=== PATIENT | female | born 1985 | race Caucasian/White ===

== ENCOUNTER 2019-05-10 19:06 | Observation (INO) ==
--- NOTE | 2019-05-10 12:51 | OB/GYN History & Physical ---
Date of Encounter: 05/10/19 Time of Encounter: 12:50 Assessment and Plan (1) Menorrhagia with irregular cycle Status: Acute Patient is scheduled for robotic total laparoscopic hysterectomy bilateral salpingectomy (2) Dysmenorrhea Status: Acute (3) Blood loss anemia Status: Acute Patient will be admitted and 2 units of packed red blood cells will be transfused overnight for surgery in a.m. (4) Enlarged uterus Status: Acute History of Present Illness HPI: Ms. Fitch is a 33 year old female who presented for transfusion secondary to blood loss anemia and surgery scheduled in the am, patient is scheduled for robotic total laparoscopic hysterectomy tomorrow morning however her preoperative lab work showed hemoglobin of 7.7. This was discussed with anesthesia who felt the patient need to be transfused prior to surgery. Patient has been having issues with heavy irregular painful. For some time that we have been unable to treat medically. She is had surgery and medical management nothing seems to be controlling her bleeding she currently is on norethindrone which has slowed down the bleeding but not 100% stopped it. It was recommended she undergo a robotic hysterectomy due to history of previous sections. Past Med Surg Social Fam HX - Past Medical History Source: patient, old records reviewed Medical history: thyroid disease, other Additional medical history: Bleeding with IUD; Removed. Anemia. Enlarged Uterus. Menorrhagia. Endometrial Hyperplasia Psychiatric history: no psych history - Past Surgical History Surgical History: , other Additional surgical history: ORIF LT WRIST. d&c. tonsils. wisdom teeth - Social History Smoking Status: Never smoker Smokeless Tobacco Status: No Alcohol use: none Drug use: none Occupational status: employed Current living situation: Home - Independent Recent Out of Country Travel Within the Last 8 Weeks: No Exposure or Possible Exposure to Illness During Travel: No - Additional Family History Additional family history: Family history noncontributory at this time Obstetrical History - Pregnancies : 3 Para: 3 Livin Medications and Allergies Thyroid,Pork [Nature-Throid] 32.5 mg PO DAILY 10/17/18 [History] Ferrous Sulfate [Iron] 325 mg PO BID 03/05/19 [History] Megestrol Acetate 20 mg PO BID 03/05/19 [History] Allergy/AdvReac Type Severity Reaction Status Date / Time ibuprofen Allergy Hives Verified 05/04/19 10:48 Review of System OB All systems PM: reviewed and no additional remarkable complaints except as stated - Menstruation Menstruation: other (heavy flow ) Exam - Constitutional Constitutional: well developed, well nourished, no acute distress, average body habitus - HEENT HEENT: Normocephaly, Mucus Membranes Moist - Neck Neck exam: full ROM - Lungs Respiratory exam: CTAB - Cardiovascular Cardiovascular exam: RRR - Abdomen Abdomen: Present: bowel sounds normal - Vagina Vagina: Present: normal moisture - Uterus Uterus exam: Present: enlarged Results All other labs normal. - VTE Reasons for not Prescribing Prophylaxis: Treatment not Indicated - Low risk for VTE
[2019-05-10] MEDS ORDERED: 0.9 % Sodium Chloride 500 ML ONE (20:52)
[2019-05-11 06:45] LABS: Hemoglobin 8.7 g/dL (11.5-15.4); Mean Corpuscular HGB Conc 28.2 g/dL (31.6-35.5)
[2019-05-11 06:46] LABS: Hematocrit 30.9 % (35.3-44.9); Mean Corpuscular Hemoglobin 20.4 pg (28.0-33.3); Mean Corpuscular Volume 72.5 fL (83.0-100.0); Mean Platelet Volume 10.5 fL (9.4-12.4); Platelet Count 284 K/mcL (140-400); Red Blood Count 4.26 M/mcL (3.82-4.97); Red Cell Distribution Width 19.9 % (11.5-14.5); White Blood Count 7.6 K/mcL (4.3-11.1)
[2019-05-11] MEDS ORDERED: *HR* FentaNYL (PF) 100 MCG/2 ML VIAL ONE (06:54)
[2019-05-11] MEDS ORDERED: *HR* Midazolam HCl 2 MG/2 ML VIAL ONE (06:54)
[2019-05-11] MEDS ORDERED: *HR* Propofol 200 MG/20 ML VIAL IVP ONE (06:54)
[2019-05-11] MEDS ORDERED: Lidocaine -MPF 2% 2 ML VIAL ONE (06:55)
[2019-05-11] MEDS ORDERED: *HR* Rocuronium Bromide 50 MG/5 ML VIAL ONE ×2 (06:55→09:09)
[2019-05-11] MEDS ORDERED: Dexamethasone 4 MG/ML VIAL ONE (06:55)
[2019-05-11] MEDS ORDERED: Ondansetron 4 MG/2 ML VIAL ONE (06:55)
[2019-05-11] MEDS ORDERED: CeFAZolin Syr 2,000MG/20 ML 2,000 MG/20 ML SYRINGE IVPB ONE (07:13)
[2019-05-11] MEDS ORDERED: MetroNIDAZOLE 500 MG/100 ML 500 MG/100 ML BAG IVPB ONE (07:13)
--- NOTE | 2019-05-11 07:17 | OB/GYN Progress Note ---
Date of Encounter: 05/11/19 Time of Encounter: 07:15 - Assessment and Plan (1) Menorrhagia with irregular cycle Current Visit: No Status: Acute Patient is scheduled for robotic total laparoscopic hysterectomy bilateral salpingectomy (2) Dysmenorrhea Current Visit: No Status: Acute (3) Blood loss anemia Current Visit: No Status: Acute will discuss with patient and anesthesia about an additional 2 units, will proceed on with surgery (4) Enlarged uterus Current Visit: No Status: Acute Subjective - Subjective Interval history: patient states she is not bleeding but after 2 units hemoglobin only went up from 7.7 to 8.7. will discuss with anesthesia and patient about giving her an additional 2 units intraop. will proceed on with surgery Objective - Vital Signs Latest vital signs: Vital Signs Temp Pulse Resp BP Pulse Ox 05/11/19 02:28 98.3 F 73 18 100/54 98 05/11/19 00:10 98.4 F 81 18 124/69 99 05/11/19 00:06 98.6 F 90 18 123/65 98 05/10/19 23:40 98.5 F 84 18 99 05/10/19 21:45 98.4 F 85 18 119/70 99 05/10/19 21:29 98.9 F 91 18 123/71 05/10/19 21:15 98.4 F 94 18 124/70 99 05/10/19 18:54 98.2 F 92 16 117/73 100 Intake and Output 05/10/19 05/10/19 05/11/19 15:59 23:59 07:59 Intake Total 470 / 470 350 / 350 Balance 470 / 470 350 / 350 Intake: Oral 120 / 120 Blood Product 350 / 350 350 / 350 Rbcs Leuko Poor As-1 Unit 350 / 350 [id number] Rbcs Leuko Poor As-1 Unit 350 / 350 [id number] Other: # Voids 1 1 Weight 102.5 kg - I&O's I&O's: Intake & Output 05/08/19 05/09/19 05/10/19 05/11/19 23:59 23:59 23:59 23:59 Intake Total 470 / 470 350 / 350 Balance 470 / 470 350 / 350 Weight 102.5 kg - Exam Chest: Normal S1, Normal S2 Extremities: Present: normal - Labs Labs: Abnormal lab results Hgb 8.7 g/dL (11.5-15.4) L 05/11/19 06:34 Hct 30.9 % (35.3-44.9) L 05/11/19 06:34 MCV 72.5 fL (83.0-100.0) L 05/11/19 06:34 MCH 20.4 pg (28.0-33.3) L 05/11/19 06:34 MCHC 28.2 g/dL (31.6-35.5) L 05/11/19 06:34 RDW 19.9 % (11.5-14.5) H 05/11/19 06:34 Crossmatch See Detail 05/10/19 19:50 Consult Discharge Plan - Plan Referrals: Cheryl Springer MD [Primary Care Provider] -
[2019-05-11] MEDS ORDERED: Dexmedetomidine HCl 0 MCG/0 ML MLS IVC ONE (07:20)
[2019-05-11] MEDS ORDERED: *HR* Belladonna Alkaloids/Opium 30 MG RECTAL SUPPOSITORY RC ONE ×2 (07:28→10:09)
[2019-05-11] MEDS ORDERED: Bupivacaine/EPI 1:200k 0.25%PF 30 ML VIAL ONE (07:28)
--- NOTE | 2019-05-11 07:35 | Anesthesia Evaluation PreOp ---
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: Denies Any Significant HX Other Medical History: Other (Obesity) Anesthesia History: No Prior Anesthetic Complications, Past Anesthesia (WEriost, Tonsils, Spinal Cyst) : No Test: Negative (05/04/19) Alcohol Use: none Drug use: none Medications and Allergies Thyroid,Pork [Nature-Throid] 32.5 mg PO DAILY 10/17/18 [History] Ferrous Sulfate [Iron] 325 mg PO BID 03/05/19 [History] Megestrol Acetate 20 mg PO BID 03/05/19 [History] Allergy/AdvReac Type Severity Reaction Status Date / Time ibuprofen Allergy Hives Verified 05/04/19 10:48 - Meds/Allergy Pre-op Review Medications Reviewed: Yes Allergies Reviewed: Yes Beta Blockers on Current Med List: No Anesthesia Results - Labs 05/11/19 06:34 Anesthesia Exam O2 Sat Height 1.65 m Weight 102.5 kg O2 Sat by Pulse Oximetry 98 O2 Sat by Pulse Oximetry 99 O2 Sat by Pulse Oximetry 98 O2 Sat by Pulse Oximetry 99 O2 Sat by Pulse Oximetry 99 O2 Sat by Pulse Oximetry 99 O2 Sat by Pulse Oximetry 100 Vital Signs Temp Pulse Resp BP Pulse Ox 98.2 F 92 16 117/73 100 05/10/19 18:54 05/10/19 18:54 05/10/19 18:54 05/10/19 18:54 05/10/19 18:54 NPO (# of Hours): > 8 hrs Pain Scale: 0 Pain Scale Used: Numeric (1 - 10) - HEENT Pupil (Motor): Pupils equal, EOMI Mallampati: II Teeth: Normal Oral Opening: Greater than 3 - BUSINESS OFFICE TECHNICIAN LOC: Oriented BUSINESS OFFICE TECHNICIAN Motor: Normal RUE, Normal LUE, Normal RLE, Normal LLE, Normal Face BUSINESS OFFICE TECHNICIAN Sensory: Normal: RUE, LUE, RLE, LLE, Face - Cardiac Rhythm: Regular Murmur: None JVD: No Carotid Bruit: No - Pulmonary Breath Sounds: bilateral Clear Respiratory Effort: Symmetrical Anesthesia Assess/Plan ASA Score: 2 Level of consciousness: Cooperative Anesthetic Plan: General Autologous Blood: Yes Recovery Plan: PACU
[2019-05-11] MEDS ORDERED: *HR* Promethazine 25 MG/ML VIAL IVP PRN (09:31)
[2019-05-11] MEDS ORDERED: *HR* HYDROmorphone (PF) 1 MG/ML SYRINGE IVP PRN (09:31)
[2019-05-11] MEDS ORDERED: Ondansetron 4 MG/2 ML VIAL IVP ONE (09:31)
[2019-05-11] MEDS ORDERED: *HR* OxyCODONE Immed Rel 5 MG TABLET PO PRN (09:31)
[2019-05-11] MEDS ORDERED: *HR* HYDROMORPHONE 2 MG/ML VIAL ONE (09:51)
--- NOTE | 2019-05-11 10:13 | OB/GYN Procedure Note ---
Hysterectomy - Diagnosis Date of procedure: 05/11/19 Hysterectomy pre-op: other (Menorrhagia with irregular bleeding, dysmenorrhea, enlarged uterus, endometrial hyperplasia simple cystic without atypia, blood loss anemia) Post-op diagnosis: same (With status post transfusion 3 units, endometriosis) - Procedure Hysterectomy procedure: total laparoscopic hyst., bilateral salpingectomy, robotic Surgeon: Christopher De Los Santos Was there an physician assistant primary care present: Yes Floral Assistant: Ginny Quispe Anesthesia provider: Harish Hartley Anesthesia Type: General Estimated blood loss (cc): 70 Complications: none Fluids: crystalloid, blood (one unit) Specimens: uterus, cervix, right fallopian tube, left fallopian tube Findings: Enlarged bulky uterus stage II endometriosis left ovarian cyst Disposition: PACU Narrative: Patient is a 33-year-old female 3 para 3 who had presented for robotic hysterectomy secondary to menorrhagia with irregular bleeding. Patient has been having heavy periods for over a year she did undergo a operative hysteroscopy D&C with a simple cystic hyperplasia was identified without atypia. 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 Patient had had previous sections was recommended she have a robotic hysterectomy and was referred to myself. Patient has been placed on [facility] which had finally got a bleeding under control however at the time of her preoperative blood work showed hemoglobin is 7.7. We did bring the patient in the night before for transfusion of 2 units. Patient's hemoglobin this morning was only 8.7 was recommended she get an additional 1-2 units intraoperatively. Because of her young age she was recommended the ovaries be left in place just removing the uterus cervix both tubes. Procedure: Patient was taken to the operating room where general anesthesia was found be adequate. She was placed in the dorsal lithotomy position prepped and draped in usual fashion. Timeout was obtained. A weighted speculum was placed in the vagina cervix was visualized sounded to 11 cm. Using a 3-1/2 cm cup 10 cm tip on the Cyntiha this was then inserted and secured in place. Instruments were removed catheter was placed and attention was then turned to the abdomen. Approximately 3 cm superior to the umbilicus a 12 mm incision was made 12 mm trocar was inserted under direct visualization. Pneumoperitoneum was obtained with 4 L of CO2 gas. Approximately 11 cm laterally on the right and left side 2 cm distal to 8 mm incisions were made at the 2 8 mm trochars were inserted under direct visualization. Approximately 12 cm lateral and distal on the right side a 12 mm trocar was then inserted. Pelvis was visualized patient was noted to have multiple endometrial implants across the bladder reflection the uterus and posterior cul-de-sac she did have a cyst on the left ovary simple which we did drain at this time. We had not discussed taking ovaries up from endometriosis and she really is not complaining of pain so we are going to leave them in place. The da Linda was then brought into place and secured instruments were then placed and attention presented to the console. The round ligaments were then identified and cauterized and transected the anterior leaf the broad ligament was then opened up dissecting the bladder off the lower uterine segment. The fallopian tubes were taken off the ovary to the mesosalpinx this was then taken all way to the cornual region then the ovary was from the uterus to the utero-ovarian ligament. Broad ligaments were then skeletonized uterine vessels were identified cauterized and transected we carried the incision down bilaterally until we were at the level of the uterosacral cardinal complex with good blanching to the uterus. The Cynthia was identified anteriorly after the bladder had been make sure it was completely dissected down we then inserted identifying the Cynthia cup the vagina was then occluded we then followed the Cynthia around anteriorly and posteriorly until the specimen was freed. Once the specimen was freed was removed out through the vagina. Good hemostasis was noted the vaginal cuff was then closed using a 2-0 V lock Suture in a running stitch from both corners to midline. Still had good hemostasis pelvis was copiously irrigated and Shon was applied to the lower surfaces. Both ovaries were normal and the procedure was terminated and the pneumoperitoneum was released and instruments removed from the abdomen followed by removal of the trochars. The skin incisions were closed using a 4-0 Vicryl in a subcuticular manner followed by Dermabond. The venous posterior was placed rectally and the patient was taken to the recovery room in stable condition. All needles lap sponge counts were correct 3 she did receive preoperative antibiotic. Patient did receive 1 unit of blood intraoperatively she was very stable second unit will be held we will repeat a CBC in 4 hours to see patient stable
--- NOTE | 2019-05-11 10:43 | Anesthesia Evaluation Post Op ---
Date of Encounter: 05/11/19 Time of Encounter: 10:42 - Vital Signs Vital Signs: Vital Signs/O2 Sat, Most Current Temp Pulse Resp BP Pulse Ox 97.8 F 72 16 114/68 97 05/11/19 10:41 05/11/19 10:41 05/11/19 10:41 05/11/19 10:41 05/11/19 10:41 - Lungs Lungs: Clear Ascult./Percussion - Airway Airway: Non-obstructed - Cardiovascular Regular Rate - Mental Status Mental Status: Asleep with brisk response to light stimulation - Pain Pain Scale: 0 Pain Scale used: Numeric (1 - 10) - Nausea Vomiting Nausea Vomiting: Not Present - Hydration Hydration: Ice chips, Martinez catheter - Discharge PostOp Status: Transfer Patient to floor
[2019-05-11] MEDS ORDERED: *HR* OxyCODONE/APAP 10/325 TABLET PO PRN (11:00)
[2019-05-11] MEDS ORDERED: Ondansetron 4 MG/2 ML VIAL IVP PRN (11:00)
[2019-05-11] MEDS ORDERED: Ringers Solution, Lactated 1,000 ML IVC SCH (11:00)
[2019-05-11] MEDS ORDERED: Naloxone 0.4 MG/ML INJ IVP PRN (11:00)
[2019-05-11] MEDS: *HR* OxyCODONE/APAP 5/325 TABLET PO PRN ×2 (12:27→19:57)
--- NOTE | 2019-05-11 13:17 | Discharge Summary ---
Date of Encounter: 05/12/19 Time of Encounter: 07:06 - Discharge Diagnosis (1) Menorrhagia with irregular cycle Priority: Secondary Status: Acute (2) Dysmenorrhea Priority: Secondary Status: Acute (3) Blood loss anemia Priority: Primary Status: Acute (4) Enlarged uterus Priority: Secondary Status: Acute (5) History of robot-assisted laparoscopic hysterectomy Priority: Primary Status: Acute - Discharge Medications Prescriptions: New OxyCODONE/APAP 5/325 [Percocet 5/325 MG] 1 each PO Q4HR PRN 7 Days #28 tablet PRN Reason: Mild To Moderate Pain Continued Ferrous Sulfate [Iron] 325 mg PO BID Megestrol Acetate 20 mg PO BID Thyroid,Pork [Nature-Throid] 32.5 mg PO DAILY Home Medications: Thyroid,Pork [Nature-Throid] 32.5 mg PO DAILY 10/17/18 [History] Ferrous Sulfate [Iron] 325 mg PO BID 03/05/19 [History] Megestrol Acetate 20 mg PO BID 03/05/19 [History] OxyCODONE/APAP 5/325 [Percocet 5/325 MG] 1 each PO Q4HR PRN 7 Days #28 tablet 05/12/19 [Rx] Allergies/Adverse Reactions: Allergy/AdvReac Type Severity Reaction Status Date / Time ibuprofen Allergy Hives Verified 05/04/19 10:48 Data Procedures and tests throughout hospitalization: Laboratory Tests 05/10/19 05/11/19 19:50 06:34 WBC 7.6 RBC 4.26 Hgb 8.7 L Hct 30.9 L MCV 72.5 L MCH 20.4 L MCHC 28.2 L RDW 19.9 H Plt Count 284 MPV 10.5 Blood Type A POSITIVE Antibody Screen NEGATIVE Crossmatch See Detail Labs on day of discharge: Labs from last 24 hours 05/11/19 05/10/19 06:34 19:50 WBC 7.6 RBC 4.26 Hgb 8.7 L Hct 30.9 L MCV 72.5 L MCH 20.4 L MCHC 28.2 L RDW 19.9 H Plt Count 284 MPV 10.5 Blood Type A POSITIVE Antibody Screen NEGATIVE Crossmatch See Detail Date of admission: 05/10/19 18:14 Primary care physician: Cheryl Springer Discharging clinician: Christopher S De Los Santos Anticipated date of discharge: 05/12/19 - Patient Status Disposition: Home, Self-Care Condition: Good Functional capacity at discharge: independent ambulation Overall status at discharge: patient is progressing back to baseline - Discharge Instructions Follow Up With: Cheryl Springer MD [Primary Care Provider] - Christopher De Los Santos DO [Partnered Physician] - - Diet and Activity Activity: increase activity as tolerated Diet: advance to your usual diet 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 She did receive 2 units of blood preoperatively but only raised hemoglobin by 1 g to 8.7. Decided by anesthesia that she would need at least 1 additional unit of blood intraoperatively to be safe. Patient did undergo a robotic total laparoscopic hysterectomy bilateral salpingectomy without any complications. She did receive 1 unit of blood intraoperatively but was stable and they felt it was not necessary give the second unit. Patient did have a hemoglobin after the surgery which was stable. Patient's hospital course was unremarkable by was advanced slowly by postoperative day #1 she was ambulating and tolerating her diet and had urinated. Patient will be discharged home with a prescription for Percocet 5 mg #28 1 every 6 hours as needed for pain for 7 days, iron sulfate 325 mg 1 daily she will follow up in the office in 2 weeks. Patient's condition at the time of discharge was stable Time Attestation: Total time spent providing and/or coordinating discharge services: Exam - Constitutional Vitals: Temp Pulse Resp BP Pulse Ox 97.8 F 63 16 122/63 98 05/11/19 13:06 05/11/19 13:06 05/11/19 13:06 05/11/19 13:06 05/11/19 13:06 General appearance IM: mild distress, A&O X 3 - Respiratory Respiratory exam: Present: CTAB - Cardiovascular Cardiovascular exam IM: Present: RRR - GI/Abdominal GI/Abdominal exam IM: normal bowel sounds Incision: normal, dry, intact - Rectal Rectal exam: deferred - VTE Reasons for not Prescribing Prophylaxis: Treatment not Indicated - Low risk for VTE Documentation of Mechanical Device: Intermittent pneumatic compression device
[2019-05-11 15:27] LABS: Basophils % 0.1 %; Red Cell Distribution Width 20.6 % (11.5-14.5)
[2019-05-11 15:28] LABS: Hematocrit 34.7 % (35.3-44.9); Hemoglobin 9.9 g/dL (11.5-15.4); Immature Granulocytes % 0.6 % (0-4); Lymphocytes # 0.6 K/mcL (0.6-4.6); Lymphocytes % 3.6 %; Mean Corpuscular HGB Conc 28.5 g/dL (31.6-35.5); Mean Corpuscular Hemoglobin 21.2 pg (28.0-33.3); Mean Corpuscular Volume 74.1 fL (83.0-100.0); Mean Platelet Volume 11.2 fL (9.4-12.4); Monocytes # 0.3 K/mcL (0.0-1.3); Neutrophils # 15.9 K/mcL (1.6-8.9); Platelet Count 304 K/mcL (140-400); Red Blood Count 4.68 M/mcL (3.82-4.97); Segmented Neutrophils % 93.7 %
[2019-05-11 15:59] LABS: Anisocytosis 1+ (Not Present); Platelet Estimate Normal (Normal)
[2019-05-12] MEDS: *HR* OxyCODONE/APAP 5/325 TABLET PO PRN ×2 (03:46→07:59)
[2019-05-12 05:49] LABS: Basophils % 0.1 %; Eosinophils % 0.1 %; Hematocrit 31.1 % (35.3-44.9); Hemoglobin 9.1 g/dL (11.5-15.4); Immature Granulocytes % 0.4 % (0-4); Lymphocytes # 1.7 K/mcL (0.6-4.6); Lymphocytes % 12.7 %; Mean Corpuscular HGB Conc 29.3 g/dL (31.6-35.5); Mean Corpuscular Hemoglobin 21.4 pg (28.0-33.3); Mean Platelet Volume 10.2 fL (9.4-12.4); Monocytes # 0.9 K/mcL (0.0-1.3); Monocytes % 6.2 %; Platelet Count 253 K/mcL (140-400); Red Blood Count 4.26 M/mcL (3.82-4.97); Segmented Neutrophils % 80.5 %; White Blood Count 13.7 K/mcL (4.3-11.1)
[2019-05-12 06:08] LABS: eGFR For African Americans > 60 (> 60); eGFR For Non-African Americans > 60 (> 60)
[2019-05-12 08:17] VITALS: BP 107/63
== END 2019-05-12 10:42 | disposition home or self-care (01) ==
LOC: 1NENUPED → EDSTATUS 05-11 07:45
PROVIDERS: ADMIT Obstetrics & Gynecology; ATTEND Obstetrics & Gynecology